=== PATIENT | male | born 2000 | race Caucasian/White ===

== ENCOUNTER 2022-09-11 12:20 | Emergency (ER) | payer MEDICAID, OTHER ==
[~2022-09-11] VITALS: Ht 177.8 cm; Wt 95.5 kg
[~2022-09-11 12:20] MED LIST: SERT25TA PO; TEN1T CORPAK
[2022-09-11 13:02] VITALS: BP 139/78
[2022-09-11] MEDS ORDERED: HYDR-3965 PO (15:21)
== END 2022-09-11 15:31 | disposition home or self-care (01) ==
LOC: ER 12:26
DX: S62.357A Nondisplaced fracture of shaft of fifth metacarpal bone, left hand, initial encounter for closed fracture (principal); Y93.71 Activity, boxing; Y93.89 Activity, other specified; Y92.89 Other specified places as the place of occurrence of the external cause; Y99.8 Other external cause status
CPT/HCPCS: 26605; 73110; 73120; 99284

== ENCOUNTER 2022-11-22 15:44 | Emergency (ER) | payer OTHER ==
[~2022-11-22] VITALS: Ht 180.3 cm; Wt 86.0 kg
[2022-11-22 16:30] VITALS: BP 141/100
[2022-11-22] MEDS ORDERED: dexamethasone sod phosphate 10mg/ml inj PO STA (19:07)
== END 2022-11-22 19:28 | disposition home or self-care (01) ==
LOC: ER 15:46
DX: J03.90 Acute tonsillitis, unspecified (principal); F17.200 Nicotine dependence, unspecified, uncomplicated; F12.90 Cannabis use, unspecified, uncomplicated
CPT/HCPCS: 87077; 87081; 87880; 99283; J1100

== ENCOUNTER 2023-08-20 22:18 | Emergency (ER) | payer OTHER ==
[~2023-08-20] VITALS: Ht 175.3 cm; Wt 73.1 kg
[2023-08-20 22:45] VITALS: BP 137/91; PULSE 71; RESP 18; TEMP 98.5; O2SAT 99
--- NOTE | 2023-08-21 06:33 | NUR ---
PT NOT IN LOBBY ON DAY SHIFT. PT CALLED X3. NOT IN LOBBY [id number]
[2023-08-22] MEDS ORDERED: AZIT250T2 PO (08:25)
== END 2023-08-21 06:33 | disposition left against medical advice (07) ==
LOC: ER 22:19
DX: M54.2 Cervicalgia (principal); Z53.21 Procedure and treatment not carried out due to patient leaving prior to being seen by health care provider
CPT/HCPCS: 99281

== ENCOUNTER 2023-08-22 07:19 | Emergency (ER) | payer OTHER ==
[~2023-08-22] VITALS: Ht 177.8 cm; Wt 75.1 kg
[2023-08-22 07:22] VITALS: BP 140/85; PULSE 80; RESP 18; TEMP 97.8; O2SAT 100
[2023-08-22] MEDS ORDERED: dexamethasone 4mg tablet PO ONE (07:40)
[2023-08-22 08:09] LABS: STREP A SCREEN POSITIVE (Neg)
[2023-08-22] MEDS ORDERED: AZIT250T2 PO (08:25)
[2023-08-22] MEDS ORDERED: azithromycin 250mg tablet PO ONE (08:25)
== END 2023-08-22 09:37 | disposition home or self-care (01) ==
LOC: ER 07:19
DX: J02.0 Streptococcal pharyngitis (principal); F41.9 Anxiety disorder, unspecified; F12.10 Cannabis abuse, uncomplicated; Z79.899 Other long term (current) drug therapy
CPT/HCPCS: 87880; 99283